=== PATIENT | male | born 1955 | race Caucasian/White ===

== ENCOUNTER → 2024-05-17 07:22 | Outpatient (REF) | payer MEDICARE, SELFPAY | LOC: RAD 07:22 | PROVIDERS: ATTENDING PHYSICIAN Surgery; FAMILY PHYSICIAN Family Medicine; REFERRING PHYSICIAN Orthopaedic Surgery | DX: Z87.442 Personal history of urinary calculi (principal); M25.562 Pain in left knee; J18.9 Pneumonia, unspecified organism | CPT/HCPCS: 71046; 73700; 76775 ==

== ENCOUNTER → 2024-07-13 07:17 | Outpatient (REF) | payer MEDICARE, SELFPAY | LOC: RAD 07:17 | PROVIDERS: ATTENDING PHYSICIAN Internal Medicine Critical Care Medicine; FAMILY PHYSICIAN Family Medicine | DX: J84.9 Interstitial pulmonary disease, unspecified (principal) | CPT/HCPCS: 71250 ==

== ENCOUNTER → 2024-12-28 08:53 | Outpatient (REF) | payer MEDICARE, SELFPAY | LOC: HWRAD 08:53 | PROVIDERS: ATTENDING PHYSICIAN Internal Medicine Critical Care Medicine; FAMILY PHYSICIAN Family Medicine; REFERRING PHYSICIAN Surgery | DX: K40.01 Bilateral inguinal hernia, with obstruction, without gangrene, recurrent (principal); J84.9 Interstitial pulmonary disease, unspecified; R91.8 Other nonspecific abnormal finding of lung field; M79.604 Pain in right leg | CPT/HCPCS: 71250; 76882 ==

== ENCOUNTER → 2025-01-11 09:40 | Outpatient (REF) | payer MEDICARE, SELFPAY ==
[2025-01-11 10:31] LABS: % Basophils 0.5 % (0-2); % Eosinophils 7.6 % (0-6); % Immature Granulocytes 0.5 % (0-0.5); % Lymphocytes 21.3 % (20.5-51.1); % Monocytes 10.4 % (1.7-9.3); % Neutrophils 59.7 % (42.2-75.2); Absolute Eosinophils 0.4 10^3/uL (0-0.7); Absolute Lymphocytes 1.2 10^3/uL (1.2-3.4); Absolute Monocytes 0.6 10^3/uL (0.1-0.6); Absolute Neutrophils 3.4 10^3/uL (1.4-6.5); Hematocrit 48.6 % (39.0-52.0); Hemoglobin 16.8 g/dL (13.0-18.0); Mean Corp Hgb Conc. 34.6 g/dL (33.0-37.0); Mean Corpuscular Hgb 31.6 pg (27.0-31.0); Mean Corpuscular Volume 91.5 fL (80.0-94.0); Mean Platelet Volume 9.6 fL (7.4-10.4); Nucleated Red Blood Cells % 0 % (-); Platelet Count 178 10^3/uL (130-400); Red Blood Cell Count 5.31 10^6/uL (4.70-6.10); Red Cell Dist. Width 14.2 % (11.5-14.5); White Blood Cell Count 5.8 10^3/uL (4.8-10.8)
[2025-01-11 11:01] LABS: ALT (SGPT) 51 U/L (0-50); AST (SGOT) 43 U/L (17-59); Albumin 4.6 g/dl (3.5-5.0); Alkaline Phosphatase 76 U/L (38-126); Blood Urea Nitrogen 11 mg/dl (9-20); Calcium 9.6 mg/dl (8.4-10.2); Carbon Dioxide 26 mmol/L (22-30); Chloride 107 mmol/L (98-107); Glucose 108 mg/dl (70-99); Phosphorus 3.3 mg/dl (2.5-4.5); Potassium 4.3 mmol/L (3.5-5.1); Sodium 144 mmol/L (135-145); Total Bilirubin 1.2 mg/dl (0.2-1.3); Total Protein 6.9 g/dl (6.3-8.2); eGFR > 60.00
== END ==
LOC: RCS 09:40
PROVIDERS: ATTENDING PHYSICIAN Internal Medicine Cardiovascular Disease; FAMILY PHYSICIAN Family Medicine
DX: I47.20 Ventricular tachycardia, unspecified (principal); I48.0 Paroxysmal atrial fibrillation; R00.2 Palpitations; R55 Syncope and collapse
CPT/HCPCS: 36415; 80053; 83735; 84100; 85025; 93306

== ENCOUNTER 2025-01-12 07:19 | Day surgery (SDC) | payer MEDICARE, SELFPAY ==
[2025-01-12] VITALS (15 sets, daily range): BP systolic 142–198; BP diastolic 74–127; BMI 29.8
[2025-01-12] MEDS: NSS 333 ML IV (08:15)
--- NOTE | 2025-01-12 09:57 | ITS.CL.ANGIO ---
Associate Director Of Nursing - Angioplasty
Angioplasty
Procedure Report:
CARDIAC CATHETERIZATION REPORT
Date of Procedure: 01/12/2025
Referring: Qasim Herrera D.O.
INDICATION: Presyncope associated with palpitations, nonsustained ventricular tachycardia seen on MCOT.
PROCEDURE:
1. Left heart catheterization
2. Coronary angiography.
3. Attempted but unsuccessful PCI of the right posterolateral branch.
A total of 30 minutes of procedural/moderate sedation was utilized. An independent medical affairs leader was present to assist with and help manage the patient's level of consciousness and physiologic status.
ACCESS:
1. 6 Indonesian right radial artery using a modified Seldinger technique.
CATHETERS:
1. 5 Indonesian JR4.
2. 5 Indonesian JL 3.5.
3. 6 Indonesian AL-1 guiding catheter.
HEMODYNAMIC DATA
Weight (kg): 111.0
AO (s/d/x, mmHg): 141/88/112
LV (s/x mmHg): 142/16
LEFT VENTRICULOGRAPHY: Not performed.
CORONARY ANGIOGRAPHY
Dominance: Right.
Left Main: Large size, bifurcating vessel. There is no coronary artery disease.
LAD: Normal size vessel giving rise to 1 significant diagonal. There is no coronary artery disease.
Ramus: Congenitally absent.
Circumflex: Normal size, nondominant vessel that is essentially a single obtuse marginal supplying the majority of the lateral wall. There is no coronary artery disease.
RCA: Large size, dominant vessel with an anterior origin making it difficult to engage and a significant posterolateral system. The vessel is severely tortuous with 2 sequential 180 degree turns in the proximal vessel. There is a 95% lesion in
the medium size PLB 3 with RASHAUN I-II flow. Faint collateralization is seen from branches of OM1.
INTERVENTION(S)
1. Attempted but unsuccessful intervention on PLB 3.
Narrative:
The decision was made to proceed with percutaneous coronary intervention. The diagnostic catheter was removed over a wire and a 6Fr AL-1 guiding catheter was advanced to the aortic root and seated in the right coronary artery. Additional heparin was
given and a Power Turn Flex wire was advanced through a super cross microcatheter into the distal RCA. The super cross microcatheter was used to steer the wire given the severe tortuosity and avoid dissection. In spite of the use of a
microcatheter, there was significant difficulty manipulating the wire given the severe tortuosity and multiple points of contact. Ultimately, we were unable to advance the wire out to the level of PLB 3. The microcatheter was unable to advance any
further through the guide given the severe tortuosity of the vessel. By virtue of being unable to reach the lesion with a microcatheter and wire, the right posterolateral branch is on revascularizable from a percutaneous standpoint. The
interventional equipment was withdrawn and angiography was performed, showing a stable coronary artery with no disruption or dissection.
The coronary wire was withdrawn and the guide was disengaged from the artery. The catheter was removed over a standard J-wire.
Closure Device: Vascular band.
Radiation (mGy): 1139.43
DAP (cm2.Gy): 91.2762
Fluoroscopy time (minutes): 8.3
CONCLUSIONS
1. Right dominant circulation with an extremely tortuous proximal right coronary artery with 2 sequential 180 degree turns and a 95% lesion in the medium size PLB 3 with RASHAUN I-II flow, faintly collateralized from branches of OM1.
2. Attempted intervention on PLB 3, ultimately unsuccessful due to the fact that tortuosity of the proximal RCA and the location of the vessel made the lesion unreachable by interventional equipment.
3. Mildly elevated filling pressures (LVEDP = 16 mmHg at 111 kg).
RECOMMENDATIONS:
1. Expectant management after cardiac catheterization via right radial approach.
2. Limited weight bearing on the right wrist for one week.
3. Medical management of nonsustained VT as potential culprit of near syncopal episodes.
4. We will arrange for cardiac MRI.
5. The patient will resume wearing his M cot.
6. We will inquire about the use of LifeVest.
7. I will discuss EP study with my electrophysiology colleagues.
Copy to: Qasim Herrera D.O., Aniket Nieves M.D., Melodie Avelar PA-C
Qasim Herrera DO, FACC, FACP
[2025-01-13 08:38] LABS: ACT-LR - POC > 397 Seconds (116-155)
== END 2025-01-12 14:00 | disposition home or self-care (01) ==
LOC: CATH 07:19
PROVIDERS: ATTENDING PHYSICIAN Internal Medicine Cardiovascular Disease; FAMILY PHYSICIAN Family Medicine
DX: I25.10 Atherosclerotic heart disease of native coronary artery without angina pectoris (principal); R00.2 Palpitations; R55 Syncope and collapse; I47.20 Ventricular tachycardia, unspecified; Z79.899 Other long term (current) drug therapy
CPT/HCPCS: 99152; 99153; 85347; 93005; 93458; C1887; C1894; Q9967

== ENCOUNTER → 2025-01-26 07:14 | Outpatient (REF) | payer MEDICARE, SELFPAY | LOC: RAD 07:14 | PROVIDERS: ATTENDING PHYSICIAN Internal Medicine Cardiovascular Disease; FAMILY PHYSICIAN Family Medicine | DX: Z87.442 Personal history of urinary calculi (principal) | CPT/HCPCS: 76775 ==

== ENCOUNTER → 2025-02-02 08:34 | Outpatient (REF) | payer MEDICARE, SELFPAY | LOC: RAD 08:34 | PROVIDERS: ATTENDING PHYSICIAN Family Medicine; FAMILY PHYSICIAN Family Medicine | DX: R22.32 Localized swelling, mass and lump, left upper limb (principal); L03.90 Cellulitis, unspecified | CPT/HCPCS: 76882 ==

== ENCOUNTER → 2025-02-23 08:28 | Outpatient (REF) | payer MEDICARE, SELFPAY | LOC: PAVMRI 08:28 | PROVIDERS: ATTENDING PHYSICIAN Internal Medicine Cardiovascular Disease; FAMILY PHYSICIAN Family Medicine | DX: I47.20 Ventricular tachycardia, unspecified (principal); I25.10 Atherosclerotic heart disease of native coronary artery without angina pectoris; R55 Syncope and collapse | CPT/HCPCS: 75561; 75565; A9585 ==

== ENCOUNTER 2025-05-19 05:56 | Day surgery (SDC) | payer MEDICARE, SELFPAY ==
[2025-05-19] VITALS (15 sets, daily range): BP systolic 126–195; BP diastolic 72–92; BMI 30.5
--- NOTE | 2025-05-19 08:40 | ITS.EPS ---
End Maker - EPS Report
EPS
Procedure Report:
Electrophysiology study:
Mr. Roper is a very pleasant 69 yr old gentleman with h/o pre-syncope is noted to have continued high burden of non-sustained VT with cardiac MRI showing late gadolinium enhancement consistent with ventricular fibrosis s/p cardiac cath on
01/12/25 showing extremely tortuous proximal right coronary artery with 2 sequential 180 degree turns and a 95% lesion in the medium size PLB 3 with RASHAUN I-II flow, faintly collateralized from branches of OM1 with failed attempt for PCI and not
amenable to intervention, managed medically is here for EP evaluation and arrhythmia induction for electrophysiology (EP) study and if ventricular arrhythmia is inducible then possible ICD placement.
Date of the Procedure:
05/19/2025
Indications: Non-sustained Ventricular Tachycardia with large ventricular scar
Pre-Operative Diagnosis: History of ventricular tachycardia and pre syncope
Post-Operative Diagnosis: Ventricular tachycardia
Procedure Performed: EP study with arrhythmia induction
Performing physician:
Elaine Yoo MD
Anesthesia:
See anesthesia records
Detailed Description of the Procedure:
Written informed consent was obtained from the patient after a full explanation of the risks and benefits of the procedure including the risks of sedation and anesthesia.
The patient was brought to the electrophysiology laboratory in stable condition in fasting state. Continuous electrocardiographic and hemodynamic monitoring was initiated. The initial rhythm was normal sinus rhythm.
The procedure site was meticulously prepared with surgical scrub and allowed to dry with no pooling. Sterile draping was applied to cover the procedure site. The image intensifier was draped with sterile bag and positioned over the patient.
After infusion of local anesthetic, vascular access was obtained under ultrasound guidance and sheaths were placed over guide wire as detailed below.
Sheaths:
��������� 6Fr sheath in right femoral vein
��������� 7Fr sheath in right femoral vein
Catheters:
��������� 6Fr - Mitesh Quad-cath at RVa, HIS
��������� 7Fr � Bard catheter in RA and CS
Baseline intervals (milliseconds):
PP / RR interval (baseline cycle length): 870
ND duration: 224
QRS duration: 98
QT interval: 424
AH interval: 90
His duration: 12
HV interval: 90
Q onset to RVa: 0
Sinus Node Function:
Burst pacing was performed from the right atrium at varying cycle lengths to measure the sinus node recovery time (SNRT) and corrected sinus node recovery time (cSNRT). The sinus node functions are within acceptable normal range.
Atrioventricular Sreekanth Function:
Atrial stimulation with incremental pacing intervals was performed from the high right atrium (HRA) and right ventricular apex (RVa) and antegrade and retrograde atrioventricular (AV) block cycle lengths were determined. The antegrade AV Wenckebach
was noted at 490 msec.
Programmed atrial stimulation was performed with drive train of 600 msec followed by a single atrial extra-stimulus and the AV sreekanth and the atrial ERPs were determined. The AV sreekanth ERP was 600/290 msec and the atrial ERP was 600/210 msec.
There was normal decremental conduction noted through the AV node. The programmed stimuli showed no evidence of dual pathways or echo beats.
Ventricular stimulation showed concentric, midline and decremental retrograde conduction through the AV node and retrograde AV sreekanth wenckebach was 560 msec.
The AV sreekanth conduction was slow and the conduction delayed with HV and sreekanth ERPs are all prolonged showing conduction disease. �
Ventricular Function:
Single ventricular extrastimuli were delivered following drive train of 600 msec, the ventricular ERP was determined <220 msec. The ventricular electrical functions are within acceptable range.
Arrhythmia Induction:
Programmed stimulation including single, double and triple extrastimuli were delivered from the RVa. There was easily inducible non-sustained ventricular tachycardia with single and double extrastimuli.
The sustained VT was induced at 600/300/240/230 and it was fast and sustained. The tachycardia was sustained at cycle length of 220 msec.
The EP study was positive for ventricular tachycardia induced with programmed stimulation.
Procedure End
Following the completion of the EP study, catheters were removed. The sheaths were removed and hemostasis achieved with manual compression.
Estimated Blood loss:
<5 cc
Specimens Removed:
None.
Implants / Devices:
None
Urine output:
None
Packs / Drains/ Tubes:
None
Instrument / Sponge Count Correct:
Yes
Complications of the Procedure:
None
Condition of Patient at Time of Transfer:
Hemodynamically stable with no neurological or vascular compromise.
Summary:
A positive electrophysiology study with induction of Ventricular tachycardia. With VT and cardiac arrest, ICD placement is recommended.
--- NOTE | 2025-05-19 10:23 | ITS.CL.ICD ---
Stiff Leg Operator - ICD
Implantable Cardioverter Defibrillator
Procedure Report:
Dual Chamber Implantable Cardioverter Defibrillator Placement:
Mr. Roper is a very pleasant 69 years old gentleman with paroxysmal SVT, recurrent VT and presyncope, and large ventricular scar s/p EP study with easily inducible ventricular tachycardia and conduction disease is recommended a dual chamber ICD
placement.
Indications: SVT and VT with syncope - Secondary prevention of sudden cardiac for ventricular tachycardia
Date of the Procedure: 05/19/2025
Pre-Operative Diagnosis: Secondary prevention of sudden cardiac for ventricular tachycardia
Post-Operative Diagnosis: Secondary prevention of sudden cardiac for ventricular tachycardia
Procedure Performed: DUAL CHAMBER IMPLANTABLE CARDIOVERTER DEFIBRILLATOR IMPLANTATION
Surgeon:
Elaine Yoo MD
Anesthesia:
See anesthesia records
Detailed Description of the Procedure:
The patient was identified using hospital identification and informed consent obtained for the procedure. The risks were explained including, but not limited to: Bleeding, infection, arrhythmia, stroke, vascular/cardiac/lung puncture, surgery,
pacemaker dependency/device malfunction. All questions were answered.
The patient was brought to the electrophysiology laboratory in stable condition in fasting state. Continuous electrocardiographic and hemodynamic monitoring was initiated. The initial rhythm was normal sinus rhythm with PVCs.
The procedure site was meticulously prepared with surgical scrub and allowed to dry with no pooling. Sterile draping was applied to cover the procedure site. The image intensifier was draped with sterile bag and positioned over the patient.
The left infraclavicular region was prepped and draped in the usual sterile fashion. Local anesthesia was administered subcutaneously using 1% lidocaine / Bupivacaine. The left cephalic vein cutdown was performed with an incision at the
delto-pectoral groove, and vascular sheaths were introduced for lead access. These were advanced into the right ventricle and the right atrium. The right ventricular lead was secured in position with an active fixation technique at the apical septal
location. The RA lead was attached in the right atrial appendage with active fixation. There was excellent sensing, pacing, and impedance from the leads, with no diaphragmatic stimulation at 10 V output.�Bovie cautery, antibiotics, and fluoroscopy
were used.
The sheath was withdrawn, and the thresholds remained acceptable. The leads were secured in position at the venous entry site with 2-0 Ethibond and anchored to the underlying fascia. A pocket was fashioned contiguous to the incision. The electrode
terminals were connected to the pulse generator, which was placed into the pocket. The wound was irrigated thoroughly with antibiotic solution.
The wound was closed in 3 layers using 2-0 Vloc sutures followed by 4-0 Monocryl sutures. Steri-Strips and a bandage were applied externally.�
Procedure End:
The procedure was tolerated well. A bandage was applied to the incision area.
Estimated Blood loss:
5 cc
Specimens Removed:
No cultures and no specimens were obtained. No intraoperative pathology was identified.
Urine output:
None
Packs / Drains/ Tubes:
None
Instrument / Sponge Count Correct:
Yes
Complications of the Procedure:
None
Condition of Patient at Time of Transfer:
Hemodynamically stable with no neurological or vascular compromise.
Device information:�
Generator: [employer]; Model: [id number]; Serial # [id number]
Atrial Lead: [employer]; Model: LPA 1231-52; Serial # [id number]
Measured data in the right atrium was sensing of 4.0 mV, impedance of 400 ohms and threshold of 0.75 V at 0.4ms�
RV Lead: [employer]; Model: [id number] - 65; Serial # [id number]
Measured data in the RV lead was sensing of 8.4 mV, impedance of 650 ohms and threshold of 1.25 V at 0.4ms�
PROGRAMMING PARAMETERS:�
Tray parameter settings were DDDR 60-130 bpm
����������� Mode switch: On
����������� Rate responsive A-V delay: Off
����������� Ventricular intrinsic Preference (VIP): on
����������� VIP extension:� 200 ms
����������� Search interval 30 sec
Output� parameters:
����������������������� Amplitude (V)������������� Pulse Width (ms)������� Sensitivity (mV)
����������� RA: ����� 2.5 ����������������������������� 0.5������������������������������ Auto
����������� RV:������ 2.5������������������������������ 0.5������������������������������ Auto
Tachy parameter settings:
����������� SVT discrimination: On
����������� AF/AFl: On
����������� SVT limit: 260 msec
����������� VT zone:
����������������������� Slow VT: 150-180 bpm --> Monitor
����������������������� Fast VT: 181-214--> ATP x3 then Shock x3
����������������������� VF: >181 bpm--> ATP x1 then Shock x6
�����������
Summary:
Successful implantation of MRI compatible dual chamber Montes ICD pacemaker
Results/Recommendations:
-Please follow up CXR�
1. Please provide patient with adequate pain control�
Instructions to be given to patient:�
- Please follow up with [facility] at [address] [place] [address] ([phone]) to get your wound checked within 7 days of your discharge.
- Do not wet incision site until after it is evaluated at cardiology clinic. No showers until then. Sponge baths are OK.�
- Allow 'steri strips' to fall off on their own�
- Do not lift left elbow above shoulder, particularly with sudden jerking movements, for 1 month�
- Do not lift anything weighing more than 5 pounds with the left arm for 1 month�
- If you notice any fevers, shortness of breath, lightheadedness, chest pain, or worsening swelling in the wound site, please contact the arrhythmia clinic, contact your patient accounting representative, or present to the hospital for evaluation.�
Elaine Yoo MD
Electrophysiology
--- NOTE | 2025-05-19 13:31 | PTCARENOTE ---
Rec'd pt from laundry laborer. Tele- SR w/ occ. A-pacing. L chest wall w/ steri-strips, Aquacel, and immobilizer on. R groin is c/d/i. No bleeding/hematoma noted. Pt has no complaints pain/discomfort/sob at this time. Activity restrictions reviewed w/ pt
and verbalizes understanding. Oriented pt to room. Spouse at bedside. Currently in bed; call laney w/in reach.
--- NOTE | 2025-05-19 14:54 | CM ---
Reviewed chart. Met with and Mrs. Roper to review discharge plans. He states prior to admission he resides with his spouse in a two story home with three steps to enter. He states he has a full flight of steps to get to bedroom/full
bathroom. He states he has a powder room on the first floor. He states prior to admission he was independent with ambulation and adls. He states he has a prescription plan and uses [facility]. The discharge plan is to return home with his spouse
when medically stable.
[2025-05-19] MEDS: ANCEF 5 IV (16:08)
[2025-05-19] MEDS: TYLENOL 650 MG PO (19:22)
--- NOTE | 2025-05-19 23:22 | PTCARENOTE ---
Pt rec'd at change of shift awake,alert c/o minimal discomfort at ICD site. Medicated with Tylenol with relief noted.
Drsg dry and intact with immobilizer in place. Sinus with pvc's noted on telemetry.
[2025-05-20] MEDS: ANCEF 5 IV (01:50)
[2025-05-20 02:12] VITALS: BP 141/91
[2025-05-20 03:13] LABS: Hematocrit 44.8 % (39.0-52.0); Hemoglobin 15.3 g/dL (13.0-18.0); Mean Corp Hgb Conc. 34.2 g/dL (33.0-37.0); Mean Corpuscular Volume 93.3 fL (80.0-94.0); Platelet Count 163 10^3/uL (130-400); Red Cell Dist. Width 14.0 % (11.5-14.5)
[2025-05-20 03:45] LABS: Blood Urea Nitrogen 19 mg/dl (9-20); Calcium 9.9 mg/dl (8.4-10.2); Carbon Dioxide 25 mmol/L (22-30); Chloride 107 mmol/L (98-107); Estimated Creatinine Clearance 120 ml/min; Glucose 140 mg/dl (70-99); Magnesium 2.0 mg/dl (1.6-2.3); Potassium 5.0 mmol/L (3.5-5.1); Sodium 138 mmol/L (135-145); eGFR > 60.00
[2025-05-20 07:20] VITALS: BP 169/99
[2025-05-20 07:43] VITALS: BMI 30.1
--- NOTE | 2025-05-20 08:07 | W.ICD.CONTRA ---
Post ICD/FRENCH INSTRUCTOR-D
-
History of IA?: No
LV Function
Left ventricular function study result?: Ejection Fraction >/= 40%
ACEI/ARB/ARNI
Patient already on ACEI/ARB/ARNI: No
ACEI/ARB/ARNI Not Indicated: Left Ventricular EF >/= 40%
Beta-[place]
Patient already on Beta [place]: Yes
--- NOTE | 2025-05-20 09:02 | W.PN.CD ---
Today's Communication / Plan
-
- Change Coreg to Toprol 25 mg BID
- Discharge home
- Follow up with device clinic.
Impression / Plan
-
Mr. Roper is a very pleasant 69 yr old gentleman with h/o pre-syncope is noted to have continued high burden of non-sustained VT with cardiac MRI showing late gadolinium enhancement consistent with ventricular fibrosis s/p cardiac cath on
01/12/25 showing extremely tortuous proximal right coronary artery with 2 sequential 180 degree turns and a 95% lesion in the medium size PLB 3 with RASHAUN I-II flow, faintly collateralized from branches of OM1 with failed attempt for PCI and not
amenable to intervention, managed medically underwent EP study that was positive for inducible VT arrhythmia.
VT
- On Coreg 25 mg QD. Will change to Toprol XL 25 mg BID
- Continue Amiodarone 200 mg Q/D
- s/p dual chamber ICD - [employer] 05/19/2025.
- Site looks good.
- ICD is working well.
HTN
- BP was elevated but he takes Coreg once a day
- Probably will need addition of meds or change at a later date
- Starting Toprol XL 25 mg BID
- Continue Eplerenone 50
- May need ACEi/ARB
Physical Exam
Vital Signs/Labs
Vital Signs
Temp Pulse Resp BP Pulse Ox
97.3 F 72 16 141/91 98
05/20/25 07:17 05/20/25 07:17 05/20/25 07:17 05/20/25 02:12 05/20/25 07:17
05/19/25 05/20/25 05/21/25
06:59 06:59 06:59
Actual Weight 113.7 kg 112.2 kg
05/20/25 02:24
05/20/25 02:24
Magnesium 2.0 mg/dl (1.6-2.3) 05/20/25 02:24
Physical Exam
Constitutional: No acute distress and Comfortable
EENT: Anicteric and Moist mucous membranes
Cardiovascular: Rhythm & rate is regular, Pedal edema is absent and JVD pressure is normal
Respiratory: Respiratory effort normal, Lungs clear to auscul. and Wheeze Absent
GI: Soft, Distention absent, Non tender and Normal bowel sounds
Neuro/Psych: Alert, Oriented and AO x 3
Other: Cardiac Device Site
Data Reviewed
-
Date of Service: May 20, 2025
Medical Decision Making: Reviewed Test Results, Test Interpretation and Review of Case with other Provider
EKG: Tracing Personally Visualized and interpreted
Echo: Report Reviewed by me
X-Ray/CT/US/MRI/NUC/PET: Image Personally Visualized and interpreted
Labs: Labs Reviewed by me
Old Records: Reviewed
--- NOTE | 2025-05-20 09:33 | W.DS.TRANS ---
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
-
Discharge Instructions:
Sleep Apnea Risk Intermediate
Discharge Diagnosis/Procedures EP study with NSVT and ICD implant
Diet Low Cholesterol
Driving Restrictions No driving for 1 week
Bathing Restrictions OK to Shower
Instructions:
Stand-Alone Forms: DC Instructions- Cath/EP Lab
DC Inst - Implanted Device
Changes to Home Medications: Yes
Discharge Medications:
DC Medications w/original date entered in [facility]
amiodarone 200 mg tablet 200 mg PO DAILY 01/12/25
eplerenone 50 mg tablet 50 mg PO DAILY 01/12/25
tadalafil 5 mg tablet 5 mg PO DAILY PRN prn 01/12/25
atorvastatin 40 mg tablet 40 mg PO DAILY 05/19/25
metoprolol succinate 25 mg tablet,extended release 24 hr 25 mg PO BID #60 tabs 05/20/25
Home Medication Changes
NEW: metoprolol
STOP: carvedilol
Pending Results: No
--- NOTE | 2025-05-20 09:45 | CM ---
Reviewed chart . Met with Mr. Roper to review discharge plans. He states he is feeling well and amybe able to go home Prior to admission he resides with his spouse in a two story home with three steps to enter. He has a full flight of steps to
get to bedroom/full bathroom. He has a powder room on the first floor. Prior to admission he was independent with ambulation and adls. He has a prescription plan and uses [facility]. The discharge plan is to return home with his spouse when
medically stable.
--- NOTE | 2025-05-20 09:47 | W.CARD.DEVCH ---
Cardiac Device Check
-
Device: Implanted Cardioverter-Defibrillator
Pastry Decorator: [employer]
The patient's device was interrogated with assistance of the device banking representative followed by a complete physician review. The device had normal function. No abnormalities seen.
--- NOTE | 2025-05-20 10:35 | PTCARENOTE ---
Pt received this am with no c/o of any pain. Room air sat 98%. Left arm immobilizer intact and left chest aquacell dressing dry and intact with no hematoma. Pt discharged to home with his . Discharge instructions given and reviewed with good
understanding and questions answered.
== END 2025-05-20 10:31 | disposition home or self-care (01) ==
LOC: CATH 05:56
PROVIDERS: Nurse Practitioner Adult Health; ATTENDING PHYSICIAN Internal Medicine Cardiovascular Disease; FAMILY PHYSICIAN Family Medicine; OTHER PHYSICIAN Internal Medicine Cardiovascular Disease
DX: I47.20 Ventricular tachycardia, unspecified (principal); R55 Syncope and collapse; I10 Essential (primary) hypertension; E78.5 Hyperlipidemia, unspecified; I25.10 Atherosclerotic heart disease of native coronary artery without angina pectoris; N20.0 Calculus of kidney
CPT/HCPCS: 33249; 93620; 71045; 80048; 83735; 85027; 93005; C1721; C1730; C1894; C1895; C1898